=== PATIENT | female | born 1930 | race Caucasian/White ===

== ENCOUNTER 2016-11-23 09:44 | Inpatient (IN) | payer OTHER ==
[~2016-11-23] VITALS: Ht 157.5 cm; Wt 67.3 kg
[~2016-11-23 09:44] MED LIST: AMLO10TA4 PO; AMLO5TAB2; AMLO5TAB2 PO; AMLO5TAB4 PO; BISA10SU54 PR; CALC667C3 PO; CARV-39 PO; CARV6.2512; CEFD300C37 PO; CLON0.25 PO; CLON1PAT TD; CLON1TAB PO; CLON1TAB23 PO; DOCU-131 PO; ENOX30SY4 SQ; ESTR30CR VG; FAMO-79 PO; FERR325T18 PO; FLUT1AER INH; FURO-93; FURO80TA3 PO; GABA100C PO; HYDR-3237 PO; HYDR-3341 PO; HYDR1TAB12 PO; LISI40TA PO; METH4TAB2 PO; METR500T PO; OMEP-110 PO; ONDA4TAB7 PO; POLY17PO5 PO; POTA10TA5; SENN-99 PO
[2016-11-23] MEDS ORDERED: SODIUM CHLORIDE FLUSH 10ML SYR IVF ONE (10:30)
[2016-11-23 10:37] LABS: HEMATOCRIT 23.2 % (34.6-47.8); HEMOGLOBIN 7.4 g/dL (11.7-16.4); WHITE BLOOD COUNT 6.3 x10^3/uL (3.4-10)
[2016-11-23 10:50] LABS: ASPARTATE AMINO TRANSFERASE 11 U/L (15-37); BLOOD UREA NITROGEN 44 mg/dL (7-18)
[2016-11-23] MEDS ORDERED: SODIUM CHLORIDE FLUSH 10ML SYR IVF PRN (11:30)
[2016-11-23] MEDS ORDERED: ZOLPIDEM 5MG TABLET PO PRN (12:00)
[2016-11-23] MEDS ORDERED: POLYETHYLENE GLYCOL 17 GM PACKET PO PRN (12:00)
[2016-11-23] MEDS ORDERED: BISACODYL 10 MG SUPP PR PRN (12:00)
[2016-11-23] MEDS ORDERED: ONDANSETRON ODT 4 MG PO PRN (12:00)
[2016-11-23] MEDS ORDERED: ACETAMINOPHEN 325 MG TABLET PO PRN (12:00)
[2016-11-23] MEDS ORDERED: DOCUSATE 100 MG CAPSULE PO PRN (12:00)
[2016-11-23] MEDS ORDERED: ONDANSETRON 2MG/ML, 2ML IVPush PRN (12:00)
[2016-11-23] MEDS ORDERED: morphine SULFATE 10 MG/ML, 1ML IVPush PRN (12:00)
[2016-11-23 12:29] VITALS: BP 154/60
[2016-11-23] MEDS ORDERED: DARBEPOETIN 100 MCG/ML SQ SCH (12:30)
[2016-11-23] MEDS ORDERED: HYDROcodone/APAP 5/325 TABLET PO PRN (12:30)
[2016-11-23] MEDS: CALCIUM ACETATE 667 MG CAPSULE PO SCH ×3 (13:24→22:13)
[2016-11-23] MEDS: HYDROcodone/APAP 5/325 TABLET PO PRN ×2 (13:24→22:17)
[2016-11-23] MEDS: GABAPENTIN 100 MG CAPSULE PO SCH (13:25)
[2016-11-23] MEDS: AMLODIPINE 5 MG TABLET PO SCH (13:28)
[2016-11-23] MEDS ORDERED: DIPHENHYDRAMINE 25 MG CAPSULE PO PRN (18:30)
[2016-11-23] MEDS ORDERED: DIPHENHYDRAMINE 25 MG CAPSULE ONE (18:34)
[2016-11-23 19:31] VITALS: BP_SYST 170; BP_SYST 174; BP_DIAS 78
[2016-11-23 21:16] LABS: OCCBLD OBC PASS
[2016-11-24 02:00] VITALS: BP 115/72
[2016-11-24 05:35] LABS: HEMATOCRIT 29.5 % (34.6-47.8); HEMOGLOBIN 9.6 g/dL (11.7-16.4); WHITE BLOOD COUNT 8.2 x10^3/uL (3.4-10)
[2016-11-24 05:51] LABS: BLOOD UREA NITROGEN 24 mg/dL (7-18); FERRITIN 292.8 ng/mL (8-252); TOTAL IRON BINDING CAPACITY 253 mcg/dL (250-450)
[2016-11-24 07:24] VITALS: BP 172/72
[2016-11-24] MEDS: AMLODIPINE 5 MG TABLET PO SCH (08:38)
[2016-11-24] MEDS: CALCIUM ACETATE 667 MG CAPSULE PO SCH (08:38)
[2016-11-24] MEDS: GABAPENTIN 100 MG CAPSULE PO SCH (08:39)
[2016-11-24] MEDS: HYDROcodone/APAP 5/325 TABLET PO PRN ×2 (08:39→17:18)
[2016-11-24 12:38] LABS: HEP B SURF. AB 24.9 mIU/mL (0.0-10.0)
[2016-11-24 14:47] VITALS: BP 114/56
== END 2016-11-24 17:58 | disposition home or self-care (01) | DRG 542 ==
LOC: ED 10:22 → EDIP 11:37 → 4WST 12:01
PROVIDERS: ADMIT Internal Medicine; ATTEND Internal Medicine
PROC: 5A1D00Z (ICD-10-PCS; principal; 2016-11-23)
PROC: 30233N1 Transfusion of Nonautologous Red Blood Cells into Peripheral Vein, Percutaneous Approach (ICD-10-PCS; 2016-11-23)
DX: M80.031A Age-related osteoporosis with current pathological fracture, right forearm, initial encounter for fracture (principal); N18.6 End stage renal disease; I13.2 Hypertensive heart and chronic kidney disease with heart failure and with stage 5 chronic kidney disease, or end stage renal disease; J84.9 Interstitial pulmonary disease, unspecified; E46 Unspecified protein-calorie malnutrition; I27.2 Other secondary pulmonary hypertension; F03.90 Unspecified dementia, unspecified severity, without behavioral disturbance, psychotic disturbance, mood disturbance, and anxiety; E11.22 Type 2 diabetes mellitus with diabetic chronic kidney disease; I48.91 Unspecified atrial fibrillation; E78.5 Hyperlipidemia, unspecified; W01.0XXA Fall on same level from slipping, tripping and stumbling without subsequent striking against object, initial encounter; D63.1 Anemia in chronic kidney disease; G89.29 Other chronic pain; I05.0 Rheumatic mitral stenosis; I25.10 Atherosclerotic heart disease of native coronary artery without angina pectoris; I25.2 Old myocardial infarction; I50.9 Heart failure, unspecified; M85.80 Other specified disorders of bone density and structure, unspecified site; N25.0 Renal osteodystrophy; Y93.01 Activity, walking, marching and hiking; Z87.891 Personal history of nicotine dependence; Z99.2 Dependence on renal dialysis; Z90.710 Acquired absence of both cervix and uterus; Z88.8 Allergy status to other drugs, medicaments and biological substances; Z68.27 Body mass index [BMI] 27.0-27.9, adult
CPT/HCPCS: 36415; 36430; 71010; 80053; 80069; 82272; 82306; 82728; 83540; 83550; 83970; 85025; 85610; 85730; 86704; 86706; 86850; 86900; 86902; 86922; 86923; 87340; 93005; 99285; J0881; P9016; Q0163

== ENCOUNTER 2017-01-13 21:51 | Inpatient (IN) | payer OTHER ==
[~2017-01-13] VITALS: Ht 165.1 cm; Wt 58.1 kg
[2017-01-13] MEDS ORDERED: MORPHINE SULFATE 4 MG/ML, 1ML ONE (22:04)
[2017-01-13] MEDS ORDERED: LORazepam 2 MG/ML, 1ML ONE (22:05)
[2017-01-13] MEDS ORDERED: MORPHINE SULFATE 4 MG/ML, 1ML IVPush ONE (22:30)
[2017-01-13] MEDS ORDERED: LORazepam 2 MG/ML, 1ML IVPush ONE (22:30)
[2017-01-13 22:42] LABS: IS PT STATUS REG ER OR PRE ER? YES
[2017-01-13] MEDS ORDERED: ASPIRIN 325 MG TABLET ONE (23:22)
[2017-01-13] MEDS ORDERED: ACETAMINOPHEN 325 MG TABLET PO PRN (23:30)
[2017-01-13] MEDS ORDERED: TEMAZEPAM 15 MG CAPSULE PO PRN (23:30)
[2017-01-13] MEDS: HEPARIN 5,000 UNITS/ML, 1ML SQ SCH (23:30)
[2017-01-13] MEDS ORDERED: LABETALOL 5MG/ML, 20ML IVPush PRN (23:30)
[2017-01-13] MEDS ORDERED: ASPIRIN 325 MG TABLET PO ONE (23:30)
[2017-01-13] MEDS ORDERED: ONDANSETRON ODT 4 MG PO PRN (23:30)
[2017-01-13] MEDS ORDERED: DOCUSATE 100 MG CAPSULE PO PRN (23:30)
[2017-01-14] MEDS ORDERED: HYDROcodone/APAP 5/325 TABLET PO PRN
[2017-01-14 01:00] VITALS: BP 168/81
[2017-01-14 05:52] LABS: HEMOGLOBIN 9.3 g/dL (11.7-16.4); WHITE BLOOD COUNT 7.9 x10^3/uL (3.4-10)
[2017-01-14 06:04] LABS: BLOOD UREA NITROGEN 76 mg/dL (7-18)
[2017-01-14 06:18] LABS: IS PT STATUS REG ER OR PRE ER? NO
[2017-01-14 07:30] VITALS: BP 149/67
[2017-01-14] MEDS: AMLODIPINE 5 MG TABLET PO SCH (08:14)
[2017-01-14] MEDS: HEPARIN 5,000 UNITS/ML, 1ML SQ SCH ×3 (08:15→22:09)
[2017-01-14] MEDS: CALCIUM ACETATE 667 MG CAPSULE PO SCH ×3 (08:15→18:44)
[2017-01-14] MEDS: GABAPENTIN 100 MG CAPSULE PO SCH (08:27)
[2017-01-14 11:13] LABS: IS PT STATUS REG ER OR PRE ER? NO
[2017-01-14 15:55] VITALS: BP 126/66
[2017-01-14 20:50] VITALS: BP 124/62
[2017-01-15 02:54] VITALS: BP 124/63
[2017-01-15 06:03] LABS: HEMATOCRIT 30.8 % (34.6-47.8); WHITE BLOOD COUNT 7.1 x10^3/uL (3.4-10)
[2017-01-15 06:12] LABS: BLOOD UREA NITROGEN 39 mg/dL (7-18)
[2017-01-15 06:35] LABS: IS PT STATUS REG ER OR PRE ER? NO
[2017-01-15] MEDS: HEPARIN 5,000 UNITS/ML, 1ML SQ SCH ×3 (07:30→19:39)
[2017-01-15 08:40] VITALS: BP 132/43
[2017-01-15] MEDS: GABAPENTIN 100 MG CAPSULE PO SCH (09:24)
[2017-01-15] MEDS: CALCIUM ACETATE 667 MG CAPSULE PO SCH ×3 (09:24→19:39)
[2017-01-15] MEDS: AMLODIPINE 5 MG TABLET PO SCH ×2 (09:24→09:44)
[2017-01-15] MEDS: ASPIRIN 325 MG TABLET PO SCH (09:25)
[2017-01-15 09:30] VITALS: BP 127/61
[2017-01-15] MEDS ORDERED: DARBEPOETIN 100 MCG/ML SQ SCH (11:00)
[2017-01-15 14:57] VITALS: BP 134/85
[2017-01-15 17:46] VITALS: BP 120/52
[2017-01-15 18:44] VITALS: BP 112/57
[2017-01-15] MEDS ORDERED: POLYETHYLENE GLYCOL 17 GM PACKET PO ONE (20:30)
[2017-01-16 01:09] VITALS: BP 155/68
[2017-01-16 06:24] LABS: BLOOD UREA NITROGEN 59 mg/dL (7-18)
[2017-01-16] MEDS: HEPARIN 5,000 UNITS/ML, 1ML SQ SCH ×3 (07:30→21:53)
[2017-01-16 07:35] VITALS: BP 143/65
[2017-01-16] MEDS: ASPIRIN 325 MG TABLET PO SCH (09:00)
[2017-01-16] MEDS: GABAPENTIN 100 MG CAPSULE PO SCH (09:11)
[2017-01-16] MEDS: CALCIUM ACETATE 667 MG CAPSULE PO SCH ×3 (09:11→21:54)
[2017-01-16 09:33] LABS: IS PT STATUS REG ER OR PRE ER? NO
[2017-01-16 13:50] VITALS: BP 137/63
[2017-01-16 20:00] VITALS: BP 150/65
[2017-01-17 01:50] VITALS: BP 144/66
[2017-01-17] MEDS: HEPARIN 5,000 UNITS/ML, 1ML SQ SCH (07:30)
[2017-01-17] MEDS: ASPIRIN 325 MG TABLET PO SCH ×2 (08:00→11:05)
[2017-01-17] MEDS: CALCIUM ACETATE 667 MG CAPSULE PO SCH ×2 (09:00→11:05)
[2017-01-17] MEDS: AMLODIPINE 5 MG TABLET PO SCH (09:00)
[2017-01-17] MEDS: GABAPENTIN 100 MG CAPSULE PO SCH ×2 (09:00→11:05)
[2017-01-17 09:21] VITALS: BP 158/62
[2017-01-17] MEDS ORDERED: ASPI325T17 PO (10:12)
== END 2017-01-17 13:37 | disposition home or self-care (01) | DRG 291 ==
LOC: ED 22:59 → EDIP 23:04 → 5SO 01-14 00:21
PROVIDERS: ADMIT Hospitalist; ATTEND Hospitalist
DX: I13.2 Hypertensive heart and chronic kidney disease with heart failure and with stage 5 chronic kidney disease, or end stage renal disease (principal); J96.21 Acute and chronic respiratory failure with hypoxia; D68.59 Other primary thrombophilia; E11.21 Type 2 diabetes mellitus with diabetic nephropathy; E11.40 Type 2 diabetes mellitus with diabetic neuropathy, unspecified; N18.6 End stage renal disease; E11.22 Type 2 diabetes mellitus with diabetic chronic kidney disease; I50.33 Acute on chronic diastolic (congestive) heart failure; E87.1 Hypo-osmolality and hyponatremia; I48.92 Unspecified atrial flutter; D63.1 Anemia in chronic kidney disease; E78.5 Hyperlipidemia, unspecified; F03.90 Unspecified dementia, unspecified severity, without behavioral disturbance, psychotic disturbance, mood disturbance, and anxiety; G89.29 Other chronic pain; I16.0 Hypertensive urgency; I25.10 Atherosclerotic heart disease of native coronary artery without angina pectoris; I27.20 Pulmonary hypertension, unspecified; I48.0 Paroxysmal atrial fibrillation; N80.9 Endometriosis, unspecified; I08.1 Rheumatic disorders of both mitral and tricuspid valves; Z66 Do not resuscitate; Z79.82 Long term (current) use of aspirin; Z83.3 Family history of diabetes mellitus; Z82.49 Family history of ischemic heart disease and other diseases of the circulatory system; Z87.891 Personal history of nicotine dependence; Z90.710 Acquired absence of both cervix and uterus; Z91.15 Patient's noncompliance with renal dialysis; Z91.19 Patient's noncompliance with other medical treatment and regimen; Z99.2 Dependence on renal dialysis; Z88.6 Allergy status to analgesic agent; Z88.8 Allergy status to other drugs, medicaments and biological substances
CPT/HCPCS: 36415; 71010; 80048; 80069; 82962; 83735; 83880; 84439; 84443; 84484; 85025; 93005; 93306; 99285; J1644; J2060

== ENCOUNTER 2017-04-03 18:39 | Emergency (ER) | payer OTHER ==
[~2017-04-03] VITALS: Ht 167.6 cm; Wt 55.0 kg
[~2017-04-03 18:39] MED LIST changes: +ALPR0.254 PO; +ASPI325T17 PO; +OXYC-305 PO; +TRAM50TA2 PO
[2017-04-03 18:45] VITALS: BP 168/78
[2017-04-03] MEDS ORDERED: HYDROCORTISONE 25 MG SUPP PR ONE (19:30)
== END 2017-04-03 20:34 | disposition home or self-care (01) ==
LOC: ED 18:47
DX: K64.8 Other hemorrhoids (principal); I48.91 Unspecified atrial fibrillation; I25.2 Old myocardial infarction; E11.22 Type 2 diabetes mellitus with diabetic chronic kidney disease; I12.9 Hypertensive chronic kidney disease with stage 1 through stage 4 chronic kidney disease, or unspecified chronic kidney disease; N18.9 Chronic kidney disease, unspecified; Z90.49 Acquired absence of other specified parts of digestive tract; G89.29 Other chronic pain; I12.0 Hypertensive chronic kidney disease with stage 5 chronic kidney disease or end stage renal disease; Z99.2 Dependence on renal dialysis; M54.9 Dorsalgia, unspecified; Z88.6 Allergy status to analgesic agent; Z88.8 Allergy status to other drugs, medicaments and biological substances
CPT/HCPCS: 99284

== ENCOUNTER 2017-07-03 09:15 | Inpatient (IN) | payer OTHER ==
[~2017-07-03] VITALS: Ht 165.1 cm; Wt 59.8 kg
[2017-07-03 09:49] LABS: MEAN CORPUSCULAR HEMOGLOBIN 28.6 pg (27.0-34.8); MEAN CORPUSCULAR HGB CONC 32.4 g/dL (32.4-35.8); MEAN CORPUSCULAR VOLUME 88.3 fL (80-100); PLATELET COUNT 374 x10^3/uL (130-400); RED BLOOD COUNT 3.52 x10^6/uL (3.82-5.3); RED CELL DISTRIBUTION WIDTH 21.9 % (9.6-15.2)
[2017-07-03 10:01] LABS: ALANINE AMINOTRANSFERASE 12 U/L (12-78); ALBUMIN 2.6 g/dL (3.4-5.0); ANION GAP 12 mmol/L (5-15); CALCIUM 8.8 mg/dL (8.5-10.1); CHLORIDE 98 mmol/L (98-107)
[2017-07-03 10:04] LABS: BASOPHILS # (AUTO) 0.02 x10^3/uL (0-0.1); BASOPHILS % (AUTO) 0 % (0-1); EOSINOPHILS % (AUTO) 1 % (1-7); LYMPHOCYTES # (AUTO) 0.76 x10^3/uL (1-3.4); LYMPHOCYTES % (AUTO) 7 % (22-44); MD MORPH REVIEW ONLY; MONOCYTES # (AUTO) 0.78 x10^3/uL (0.2-0.8); MONOCYTES % (AUTO) 7 % (2-9); NEUTROPHILS # (AUTO) 9.75 x10^3/uL (1.8-6.8); NEUTROPHILS % (AUTO) 86 % (42-75)
[2017-07-03 10:05] LABS: POLYCHROMASIA 1+
[2017-07-03 10:07] LABS: <PLATELET ESTIMATE> ADEQUATE; <PLT MORPHOLOGY> NORMAL PLT MORPH
[2017-07-03 10:08] LABS: ANISOCYTOSIS 1+
[2017-07-03 10:18] LABS: ALKALINE PHOSPHATASE 117 U/L (45-117); BILIRUBIN,TOTAL 0.8 mg/dL (0.2-1.0); TOTAL PROTEIN 7.1 g/dL (6.4-8.2)
[2017-07-03 10:24] LABS: TROPONIN I 0.148 ng/mL (0.000-0.045)
[2017-07-03 10:31] LABS: CULTURE INDICATED? YES; MICROSCOPIC INDICATED
[2017-07-03] MEDS ORDERED: ACETAMINOPHEN 325 MG TABLET PO PRN (11:30)
[2017-07-03 14:29] VITALS: BP 149/58
[2017-07-03] MEDS ORDERED: POLYETHYLENE GLYCOL 17 GM PACKET PO PRN (15:00)
[2017-07-03] MEDS: CALCIUM ACETATE 667 MG CAPSULE PO SCH ×2 (16:00→20:24)
[2017-07-03 20:00] VITALS: BP 151/59
[2017-07-03] MEDS: OMEPRAZOLE 20 MG CAPSULE.DR PO SCH (20:24)
[2017-07-04 01:35] VITALS: BP 146/66
[2017-07-04 06:45] VITALS: BP 136/61
[2017-07-04] MEDS ORDERED: GABAPENTIN 100 MG CAPSULE PO SCH (09:00)
[2017-07-04] MEDS: OMEPRAZOLE 20 MG CAPSULE.DR PO SCH ×2 (09:27→21:07)
[2017-07-04] MEDS: CALCIUM ACETATE 667 MG CAPSULE PO SCH ×3 (09:27→21:07)
[2017-07-04] MEDS: AMLODIPINE 5 MG TABLET PO SCH (09:27)
[2017-07-04] MEDS ORDERED: GABAPENTIN 100 MG CAPSULE PO PRN (11:30)
[2017-07-04 15:06] VITALS: BP 103/63
[2017-07-04 19:01] VITALS: BP 130/64
[2017-07-05 00:13] VITALS: BP 128/66
[2017-07-05 12:00] VITALS: BP 121/53
[2017-07-05] MEDS: CALCIUM ACETATE 667 MG CAPSULE PO SCH ×3 (12:11→20:31)
[2017-07-05] MEDS: AMLODIPINE 5 MG TABLET PO SCH (12:12)
[2017-07-05] MEDS: OMEPRAZOLE 20 MG CAPSULE.DR PO SCH ×2 (12:12→20:31)
[2017-07-05 14:55] VITALS: BP 133/66
[2017-07-05 18:50] VITALS: BP 161/75
[2017-07-06 07:00] VITALS: BP 137/62
[2017-07-06] MEDS: OMEPRAZOLE 20 MG CAPSULE.DR PO SCH ×2 (10:36→20:45)
[2017-07-06] MEDS: AMLODIPINE 5 MG TABLET PO SCH (10:36)
[2017-07-06] MEDS: CALCIUM ACETATE 667 MG CAPSULE PO SCH ×3 (10:36→20:45)
[2017-07-06 15:07] VITALS: BP 138/60
[2017-07-06 18:50] VITALS: BP 133/67
[2017-07-07 01:32] VITALS: BP 149/72
[2017-07-07 07:35] VITALS: BP 136/63
[2017-07-07] MEDS: CALCIUM ACETATE 667 MG CAPSULE PO SCH ×3 (08:27→21:04)
[2017-07-07] MEDS: AMLODIPINE 5 MG TABLET PO SCH (08:27)
[2017-07-07] MEDS: OMEPRAZOLE 20 MG CAPSULE.DR PO SCH ×2 (08:27→21:04)
[2017-07-07 12:35] VITALS: BP 144/60
[2017-07-07 14:12] LABS: ALBUMIN 2.8 g/dL (3.4-5.0); ANION GAP 9 mmol/L (5-15); CALCIUM 9.3 mg/dL (8.5-10.1); CHLORIDE 97 mmol/L (98-107); CREATININE 6.96 mg/dL (0.55-1.02)
[2017-07-07 20:10] VITALS: BP 137/62
[2017-07-08 02:01] VITALS: BP 163/54
[2017-07-08 05:13] VITALS: BP 137/62
[2017-07-08 05:18] LABS: BASOPHILS # (AUTO) 0.03 x10^3/uL (0-0.1); BASOPHILS % (AUTO) 0 % (0-1); EOSINOPHILS # (AUTO) 0.36 x10^3/uL (0-0.4); EOSINOPHILS % (AUTO) 4 % (1-7); LYMPHOCYTES # (AUTO) 1.15 x10^3/uL (1-3.4); LYMPHOCYTES % (AUTO) 12 % (22-44); MD NO; MEAN CORPUSCULAR HEMOGLOBIN 27.7 pg (27.0-34.8); MEAN CORPUSCULAR HGB CONC 32.2 g/dL (32.4-35.8); MEAN CORPUSCULAR VOLUME 86.1 fL (80-100); MEAN PLATELET VOLUME 8.3 fL (7.4-10.4); MONOCYTES # (AUTO) 0.77 x10^3/uL (0.2-0.8); MONOCYTES % (AUTO) 8 % (2-9); NEUTROPHILS % (AUTO) 76 % (42-75); PLATELET COUNT 386 x10^3/uL (130-400); RED CELL DISTRIBUTION WIDTH 21.5 % (9.6-15.2)
[2017-07-08 05:22] LABS: CALCIUM 9.5 mg/dL (8.5-10.1); CHLORIDE 97 mmol/L (98-107)
[2017-07-08 05:29] LABS: ANION GAP 11 mmol/L (5-15)
[2017-07-08 06:43] VITALS: BP 166/54
[2017-07-08] MEDS: CALCIUM ACETATE 667 MG CAPSULE PO SCH ×3 (09:00→19:48)
[2017-07-08 12:20] VITALS: BP 147/66
[2017-07-08] MEDS: OMEPRAZOLE 20 MG CAPSULE.DR PO SCH ×2 (12:25→19:48)
[2017-07-08] MEDS: AMLODIPINE 5 MG TABLET PO SCH (12:25)
[2017-07-08 19:13] VITALS: BP 138/68
[2017-07-09 03:00] VITALS: BP 123/67
[2017-07-09 08:00] VITALS: BP 135/78
[2017-07-09] MEDS: AMLODIPINE 5 MG TABLET PO SCH (09:00)
[2017-07-09] MEDS: OMEPRAZOLE 20 MG CAPSULE.DR PO SCH ×2 (09:12→20:20)
[2017-07-09] MEDS: CALCIUM ACETATE 667 MG CAPSULE PO SCH ×3 (09:12→20:20)
[2017-07-09 10:59] LABS: BASOPHILS # (AUTO) 0.02 x10^3/uL (0-0.1); BASOPHILS % (AUTO) 0 % (0-1); EOSINOPHILS % (AUTO) 4 % (1-7); LYMPHOCYTES # (AUTO) 0.91 x10^3/uL (1-3.4); LYMPHOCYTES % (AUTO) 12 % (22-44); MD NO; MEAN CORPUSCULAR HEMOGLOBIN 27.6 pg (27.0-34.8); MEAN CORPUSCULAR HGB CONC 31.7 g/dL (32.4-35.8); MONOCYTES # (AUTO) 0.91 x10^3/uL (0.2-0.8); MONOCYTES % (AUTO) 12 % (2-9); NEUTROPHILS # (AUTO) 5.36 x10^3/uL (1.8-6.8); NEUTROPHILS % (AUTO) 72 % (42-75); PLATELET COUNT 440 x10^3/uL (130-400); RED BLOOD COUNT 4.17 x10^6/uL (3.82-5.3); RED CELL DISTRIBUTION WIDTH 21.4 % (9.6-15.2)
[2017-07-09 11:04] LABS: ALANINE AMINOTRANSFERASE 14 U/L (12-78); ALBUMIN 2.9 g/dL (3.4-5.0); ANION GAP 10 mmol/L (5-15); CALCIUM 9.1 mg/dL (8.5-10.1); CHLORIDE 99 mmol/L (98-107); CREATININE 5.77 mg/dL (0.55-1.02)
[2017-07-09 11:07] LABS: ALKALINE PHOSPHATASE 138 U/L (45-117); BILIRUBIN,TOTAL 0.6 mg/dL (0.2-1.0); TOTAL PROTEIN 7.7 g/dL (6.4-8.2)
[2017-07-09 13:50] VITALS: BP 124/62
[2017-07-09] MEDS ORDERED: AMLODIPINE 5 MG TABLET PO ONE (15:30)
[2017-07-09 20:21] VITALS: BP 148/66
[2017-07-10 00:41] VITALS: BP 159/67
[2017-07-10 05:57] LABS: BASOPHILS # (AUTO) 0.03 x10^3/uL (0-0.1); BASOPHILS % (AUTO) 0 % (0-1); EOSINOPHILS % (AUTO) 5 % (1-7); LYMPHOCYTES # (AUTO) 1.01 x10^3/uL (1-3.4); LYMPHOCYTES % (AUTO) 12 % (22-44); MD NO; MEAN CORPUSCULAR HEMOGLOBIN 27.8 pg (27.0-34.8); MEAN CORPUSCULAR HGB CONC 31.9 g/dL (32.4-35.8); MEAN CORPUSCULAR VOLUME 87.1 fL (80-100); MEAN PLATELET VOLUME 8.6 fL (7.4-10.4); MONOCYTES % (AUTO) 12 % (2-9); NEUTROPHILS % (AUTO) 70 % (42-75); PLATELET COUNT 425 x10^3/uL (130-400); RED BLOOD COUNT 3.91 x10^6/uL (3.82-5.3); RED CELL DISTRIBUTION WIDTH 20.9 % (9.6-15.2)
[2017-07-10 06:09] LABS: ALBUMIN 2.9 g/dL (3.4-5.0); ANION GAP 10 mmol/L (5-15); CALCIUM 8.9 mg/dL (8.5-10.1); CHLORIDE 99 mmol/L (98-107)
[2017-07-10 06:11] LABS: CREATININE 6.79 mg/dL (0.55-1.02)
[2017-07-10 07:40] VITALS: BP 161/76
[2017-07-10] MEDS: OMEPRAZOLE 20 MG CAPSULE.DR PO SCH (09:56)
[2017-07-10] MEDS: AMLODIPINE 5 MG TABLET PO SCH (09:56)
[2017-07-10] MEDS: CALCIUM ACETATE 667 MG CAPSULE PO SCH ×2 (09:56→16:00)
[2017-07-10 13:15] VITALS: BP 150/64
== END 2017-07-10 18:57 | DRG 640 ==
LOC: ED 11:10 → EDIP 11:11 → ED 11:28 → 4EST 14:36
PROVIDERS: ADMIT Internal Medicine; ATTEND Internal Medicine
PROC: 5A1D70Z Performance of Urinary Filtration, Intermittent, Less than 6 Hours Per Day (ICD-10-PCS; principal; 2017-07-03)
PROC: 0T9B70Z Drainage of Bladder with Drainage Device, Via Natural or Artificial Opening (ICD-10-PCS; 2017-07-03)
PROC: 5A1D70Z Performance of Urinary Filtration, Intermittent, Less than 6 Hours Per Day (ICD-10-PCS; 2017-07-05)
PROC: 5A1D70Z Performance of Urinary Filtration, Intermittent, Less than 6 Hours Per Day (ICD-10-PCS; 2017-07-08)
PROC: 5A1D70Z Performance of Urinary Filtration, Intermittent, Less than 6 Hours Per Day (ICD-10-PCS; 2017-07-10)
DX: R62.7 Adult failure to thrive (principal); N18.6 End stage renal disease; I13.2 Hypertensive heart and chronic kidney disease with heart failure and with stage 5 chronic kidney disease, or end stage renal disease; I44.2 Atrioventricular block, complete; E46 Unspecified protein-calorie malnutrition; E11.22 Type 2 diabetes mellitus with diabetic chronic kidney disease; I27.20 Pulmonary hypertension, unspecified; E87.5 Hyperkalemia; I48.2 Chronic atrial fibrillation; F44.4 Conversion disorder with motor symptom or deficit; I50.42 Chronic combined systolic (congestive) and diastolic (congestive) heart failure; K80.20 Calculus of gallbladder without cholecystitis without obstruction; K64.9 Unspecified hemorrhoids; K57.90 Diverticulosis of intestine, part unspecified, without perforation or abscess without bleeding; G89.29 Other chronic pain; M54.9 Dorsalgia, unspecified; D72.829 Elevated white blood cell count, unspecified; Z51.5 Encounter for palliative care; M47.9 Spondylosis, unspecified; N25.0 Renal osteodystrophy; E78.5 Hyperlipidemia, unspecified; F03.90 Unspecified dementia, unspecified severity, without behavioral disturbance, psychotic disturbance, mood disturbance, and anxiety; I05.0 Rheumatic mitral stenosis; I25.10 Atherosclerotic heart disease of native coronary artery without angina pectoris; Z53.20 Procedure and treatment not carried out because of patient's decision for unspecified reasons; D63.1 Anemia in chronic kidney disease; Z91.19 Patient's noncompliance with other medical treatment and regimen; Z91.14 Patient's other noncompliance with medication regimen; Z90.710 Acquired absence of both cervix and uterus; Z90.49 Acquired absence of other specified parts of digestive tract; Z75.1 Person awaiting admission to adequate facility elsewhere; Z99.2 Dependence on renal dialysis; I25.2 Old myocardial infarction; Z68.21 Body mass index [BMI] 21.0-21.9, adult
CPT/HCPCS: 36415; 71045; 80053; 80069; 81001; 83690; 83880; 84484; 85025; 87086; 93005; 99285; 92523-GN